=== PATIENT | female | born 1960 | race Caucasian/White ===

== ENCOUNTER 2020-11-20 12:20 | Day surgery (SDC) | payer BC, SELFPAY ==
[~2020-11-20] VITALS: Ht 170.2 cm; Wt 59.0 kg
[~2020-11-20 12:20] MED LIST: CEFAZOLIN SOD 2 GM in D5W 50 ML IV ONE; LR 1,000 ML IV SCH
[2020-11-20] MEDS ORDERED: BUPIVACAINE LIPOSOME/PF 266 MG/20 ML VIAL INFIL ONE ×2 (14:09→14:55)
[2020-11-20] MEDS ORDERED: ONDANSETRON HCL 4 MG/2 ML VIAL IVP PRN (14:30)
[2020-11-20] MEDS ORDERED: METOCLOPRAMIDE HCL 10 MG/2 ML VIAL IVP PRN (14:30)
[2020-11-20] MEDS ORDERED: LR 1,000 ML IV SCH (14:30)
[2020-11-20] MEDS ORDERED: KETOROLAC TROMETHAMINE 30 MG VIAL IVP PRN (14:30)
[2020-11-20] MEDS ORDERED: HYDROmorphone 1 MG/ML INJ. CARTRIDGE IVP PRN (14:30)
[2020-11-20] MEDS ORDERED: MEPERIDINE HCL/PF 25 MG/ML DISP.SYRIN IVP PRN (14:30)
[2020-11-20] MEDS ORDERED: LR 1,000 ML IV.SOLN IV ONE (14:55)
[2020-11-20] MEDS ORDERED: BUPIVACAINE /PF 0.25% 30 ML VIAL INJ ONE (14:55)
[2020-11-20] MEDS ORDERED: PROPOFOL 200MG/ 20ML VIAL (DIPRIVAN) IV ONE (14:55)
[2020-11-20] MEDS ORDERED: ONDANSETRON HCL 4 MG/2 ML VIAL ONE (14:55)
[2020-11-20] MEDS ORDERED: MIDAZOLAM HCL 2 MG/2 ML VIAL (VERSED) IVP ONE (14:55)
[2020-11-20] MEDS ORDERED: fentaNYL CITRATE/PF 100 MCG/2 ML AMP IVP ONE (14:55)
[2020-11-20] MEDS ORDERED: SEVOFLURANE 15 MIN GAS INH ONE (14:55)
[2020-11-20] MEDS ORDERED: DEXAMETHASONE SOD PHOSPHATE 4 MG/ML VIAL ONE (14:55)
[2020-11-20 16:36] VITALS: BP_SYST 112
== END 2020-11-20 17:15 | disposition home or self-care (01) ==
LOC: SDS 12:20 → SMU 12:22 → SDS 17:15
PROVIDERS: ATTEND Surgery
DX: R22.42 Localized swelling, mass and lump, left lower limb (principal); N90.89 Other specified noninflammatory disorders of vulva and perineum; L92.8 Other granulomatous disorders of the skin and subcutaneous tissue; Z20.822 Contact with and (suspected) exposure to COVID-19; Z79.899 Other long term (current) drug therapy
CPT/HCPCS: 11403; 36415; 87426; 88305; C9290; J0690; J1100; J2405; J2704; J3490; J7060; J7120; U0003